=== PATIENT | female | born 1985 | race Caucasian/White ===

== ENCOUNTER 2020-10-18 19:18 | Emergency (ER) | payer MEDICAID ==
[~2020-10-18] VITALS: Ht 165.1 cm; Wt 63.5 kg
[2020-10-18 20:09] VITALS: BP 112/77
[2020-10-18] MEDS ORDERED: CLOT15CR5 TP (20:52)
[2020-10-18] MEDS ORDERED: DIPH50CA4 PO (20:52)
[2020-10-18] MEDS ORDERED: FAMO-131 PO (20:52)
== END 2020-10-18 21:07 | disposition home or self-care (01) ==
LOC: ER 19:22
DX: L50.8 Other urticaria (principal)